=== PATIENT | female | born 2000 | race Two or more races ===

== ENCOUNTER → 2024-03-15 | Outpatient (CLI) | payer MEDICAID, SELFPAY ==
--- NOTE | 2024-03-15 09:57 | XR_ITS ---
Examination: Hand, right 3 views Technique: Hand AP, oblique, lateral 3 views Date and time of exam: March 15, 2024 1005 hours INDICATIONS: Right third digit pain and paresthesias 4 months FINDINGS: Cystic lesion, loculated involving the distal aspect distal phalanx third digit, 6 x 7 mm with pathologic fracture of the cortex No opaque foreign body No alicia cortical bone destruction IMPRESSION: Pathologic fracture distal aspect distal phalanx third digit, 6 x 7 mm cystic lesion in the cortex, differential would include benign bone cyst, enchondroma, less likely malignant etiologies Recommend MRI third digit follow-up pre and post contrast for best diagnostic assessment
--- NOTE | 2024-03-15 09:57 | XR_ITS ---
Examination: Wrist, right 3 views Technique: Wrist AP, oblique, lateral 3 views Date and time of exam: March 15, 2024 1010 hours INDICATIONS: Wrist pain beginning 4 months ago. FINDINGS: No fracture or dislocation No avascular necrosis IMPRESSION: No fracture or dislocation
== END | disposition home or self-care (01) ==
LOC: CDIM 09:39
PROVIDERS: PCP Student in an Organized Health Care Education/Training Program; Referring Provider Nurse Practitioner Gerontology; Visit Provider Nurse Practitioner Gerontology
DX: M84.444A Pathological fracture, right finger(s), initial encounter for fracture (principal); M25.531 Pain in right wrist
CPT/HCPCS: 73110; 73130

== ENCOUNTER 2024-12-20 17:05 | Emergency (ER) | payer MEDICAID, SELFPAY ==
[2024-12-20 17:17] VITALS: BP 121/74; PULSE 82; RESP 20; TEMP 37; O2SAT 98
--- NOTE | 2024-12-20 17:40 | PD.EDHA ---
ED Headache RME/HPI General Chief Complaint: Headache Stated Complaint: N/V, HEADACHE, DIZZY, SHAKY X 3 DAYS Time Seen by Provider: 12/20/24 17:17 Arrival date/time: 12/20/24 17:05 24-year-old female who reports with complaints of headaches dizziness nausea vomiting and tremors that began approximately 3 days ago. Patient notes that she is also started her menses 3 days ago although this is not typical symptoms of her menses. She denies fever chills cough congestion abdominal pain dysuria urinary urgency or frequency back pain or bodyaches. Patient states that she has been taken [id number] medications with no improvement of symptoms Limitations: no limitations Related Data Home Medications ?Medication ?Instructions ?Recorded ?Confirmed PNV CMB#95/FERROUS FUMARATE/FA 1 tab PO QDAY #0 tabs 10/23/15 ( MULTIVITAMINS TABLET) Previous Rx's ?Medication ?Instructions ?Recorded Hydrocodone/Acetaminophen * (NORCO 1 tab PO Q4H PRN PAIN 10 days #0 03/27/17 5/325 *) tabs pantoprazole 40 mg tablet,delayed 40 mg PO QDAY #14 tabs 12/17/22 release (Protonix) Allergies Allergy/AdvReac Type Severity Reaction Status Date / Time No Known Allergies Allergy Verified 12/20/24 17:08 Review of Systems Constitutional Constitutional: Denies chills, Denies fever(s) and Reports headache(s) ENT Ears, Nose, Mouth, and Throat: Reports headache(s), Denies throat swelling, Denies tongue swelling and Denies vertigo Cardiovascular Cardiovascular: Denies chest pain and Denies dyspnea Respiratory Respiratory: Denies cough and Denies dyspnea Gastrointestinal Gastrointestinal: Reports nausea and Denies vomiting Genitourinary Genitourinary: Denies abnormal menses and Denies dysuria Musculoskeletal Musculoskeletal: Denies back pain and Denies myalgias Integumentary/Breasts Skin/Breast: Denies rash and Denies skin pain Neurologic Neurologic: Denies convulsions, Reports headache(s) and Denies vertigo Psychiatric Psychiatric: Denies anxiety, Denies change in appetite and Denies depression Hematologic/Lymphatic Hematologic/Lymphatic: Denies easy bleeding and Denies easy bruising Allergic/Immunologic Allergic/Immunologic: Denies throat swelling and Denies tongue swelling ED Exam General Limitations: Present no limitations General appearance: Present alert and in no apparent distress Head Head exam: Present atraumatic Eye Eye exam: Present normal appearance, PERRL and EOMI ENT ENT exam: Present normal exam, normal oropharynx and mucous membranes moist Neck Neck exam: Present normal inspection, full ROM and trachea midline Chest Chest inspection: Present normal inspection and symmetric chest wall rise Respiratory Respiratory exam: Present normal lung sounds bilaterally Cardiovascular Cardiovascular exam: Present regular rate, normal rhythm and normal heart sounds Abdominal Exam Abdominal exam: Present soft and normal bowel sounds Extremities Exam Extremities exam: Present normal inspection and full ROM Back Exam Back exam: Present normal inspection and full ROM Neurological Exam Neurological exam: Present alert, oriented X3 and CN II-XII intact Psychiatric Psychiatric exam: Present normal affect and normal mood Skin Skin exam: Present warm, dry, intact and normal color Course Course Course Narrative: 24-year-old female reports with complaints of headaches dizziness and shaking x 3 days after starting her menses. Patient's thyroid panel is normal hCG is negative urinalysis is negative for evidence of infection CBC and BMP are also unremarkable. Differential diagnosis includes viral syndrome versus menses versus PMS. Patient is stable nontoxic-appearing with stable vital signs will be sent home advised to follow-up with primary care provider and/or DOCUMENT CONTROL SUPERVISOR Quality Measures none Orders Category Date Time Status BMP [Basic Metabolic Panel] Stat Lab 12/20/24 18:06 Completed CBC Stat Lab 12/20/24 18:06 Completed Free T3 Stat Lab 12/20/24 18:06 Completed HCG,Qualitative Serum Stat Lab 12/20/24 18:06 Completed TSH [Thyroid Stimulating Hormone] Stat Lab 12/20/24 18:06 Completed UA, C/S IF [Urinalysis, C/S if Indicated] Stat Lab 12/20/24 18:20 Results Vital Signs Vital signs: Vital Signs Temperature 98.6 F 12/20/24 17:17 Pulse Rate 82 12/20/24 17:17 Respiratory Rate 20 12/20/24 17:17 Blood Pressure 121/74 12/20/24 17:17 Pulse Oximetry (%) 98 12/20/24 17:17 Oxygen Delivery Method Room Air 12/20/24 17:17 Headache Patient data External records reviewed:: None Clinical information provided by:: patient Social determinants that could affect healthcare access:: none Patient has the following chronic illnesses:: none How is presenting disease/condition affected by chronic disease/condition?: no chronic disease Evaluation data The following diagnostics were reviewed and interpreted by me:: lab results Lab and/or radiology exams considered but not ordered:: none Interpretation Summary: Normal blood labs Medications / Prescriptions Medications or Prescriptions considered but not ordered:: None Medication administrations:: None Consultations Consultation(s) initiated? (list below): No Diagnosis Differential diagnosis headache: migraine, headache and other (PMS, menses symptoms) Most likely diagnosis given after review of the tests above:: Signs and symptoms of menses Admission Indicated Admission indicated?: not indicated Admission Request Was there a request for admission?: No Disposition Plan Disposition Plan: Discharge Discharge Attestation Discharge Attestation: The patient and all family members were given an opportunity to ask questions and understood the discharge instructions. Discharge instructions specifically effects, indications for sooner follow up or return to the emergency department, and the expected course of current diagnosis. Patient condition: Stable Discharge Plan Plan Patient Disposition: HOME (Self Care) Prescriptions/Referrals Prescriptions/Med Rec: No Action PNV CMB#95/FERROUS FUMARATE/FA ( MULTIVITAMINS TABLET) 1 EACH tablet 1 tab PO QDAY Qty: 0 Hydrocodone/Acetaminophen * (NORCO 5/325 *) 1 TAB tablet 1 tab PO Q4H PRN (Reason: PAIN) 10 Days Qty: 0 0RF pantoprazole [Protonix] 40 mg tablet,delayed release (DR/EC) 40 mg PO QDAY Qty: 14 0RF Referrals: Carlitos Burr MD [Primary Care Provider, Family Practice] - In 1 week Problem List Clinical Impression: Menstrual symptom or sign Patient/Caregiver Discharge Instructions Discharge Activity: activity as tolerated Additional Instructions: Your lab tests are all normal your symptoms are most likely caused by your menstrual cycle use medication such as Tylenol or ibuprofen for pain and headache hydrate well follow-up with your primary care provider or your DOCUMENT CONTROL SUPERVISOR if no improvement in 3 days Print Language: Nauruan Stand Alone Forms: Karina Award Info., Patient Portal Info Letter
[2024-12-20 18:18] LABS: Basophils # (Auto) 0.0 Thou/mm3 (0.0-0.2); Basophils % (Auto) 0 % (0-2.5); Eosinophils # (Auto) 0.0 Thou/mm3 (0.0-0.5); Eosinophils % (Auto) 1 % (0-10); Hematocrit 33.6 % (36.0-46.0); Hemoglobin 10.9 g/dL (12.0-16.0); Immature Granulocytes Auto 0.01 Thou/mm3 (0.00-0.00); Lymphocytes # (Auto) 1.9 Thou/mm3 (1.0-4.8); Lymphocytes % (Auto) 37 % (10-50); Mean Corpuscular HGB Conc 32.4 g/dl (31.0-37.0); Mean Corpuscular Hemoglobin 29.2 pg (25.0-35.0); Mean Corpuscular Volume 90 fL (80-100); Monocytes # (Auto) 0.4 Thou/mm3 (0.0-0.8); Monocytes % (Auto) 7 % (0-12); Neutrophils # (Auto) 2.8 Thou/mm3 (1.8-7.7); Neutrophils % (Auto) 55 % (37-80); Nucleated Red Blood Cell # 0.00 Thou/mm3 (0.00-0.00); Nucleated Red Blood Cell % 0 /100 WBC (0); Platelet Count 203 Thou/mm3 (140-440); RDW Standard Deviation 47.6 fL (36.4-46.3); Red Blood Count 3.73 Miln/mm3 (4.00-5.20); White Blood Count 5.1 Thou/mm3 (3.6-11.0)
[2024-12-20 18:27] LABS: Collection Type, Urine Clean Catch
[2024-12-20 18:31] LABS: HCG,Qualitative Serum Negative
[2024-12-20 18:46] LABS: RBC,Urine 3 /hpf (0-3); Squamous Epithelial Cell,Urine 5 /hpf (0-5); WBC,Urine < 1 /hpf (0-5)
[2024-12-20 19:01] LABS: Anion Gap 7 (7-16); BUN/Creatinine Ratio 16 Ratio (12-20); Blood Urea Nitrogen 11 mg/dL (9-23); Calcium 9.2 mg/dL (8.3-10.6); Carbon Dioxide 25.9 mMol/L (20.0-31.0); Chloride 108 mMol/L (98-107); Creatinine (Component) 0.7 mg/dL (0.6-1.3); Free T3 3.6 pg/mL (2.3-4.2); Glucose 123 mg/dL (74-106); Osmolality,Calculated 281 (275-295); Potassium 4.1 mMol/L (3.4-5.1); Sodium 141 mMol/L (136-145); Thyroid Stimulating Hormone 1.28 uIU/mL (0.55-4.78); eGFR > 60 See Note
[2024-12-20 19:02] LABS: Bilirubin,Urine Negative (Negative); Blood,Urine Negative (Negative); Clarity,Urine Clear (Clear/Hazy); Color,Urine Lt-Yellow (Lt Yel-Yel); Culture Indicated,Urine Not Indicated; Glucose, Urine Negative (Negative); Ketones,Urine Negative (Negative); Leukocyte Esterase,Urine Negative (Negative); Nitrite,Urine Negative (Negative); PH,Urine 6.0 (5.0-7.0); Protein,Urine Negative (Neg - Trace); Specific Gravity,Urine 1.030 (1.001-1.035); Urobilinogen,Urine Negative mg/dL (0.0-1.0)
== END 2024-12-20 20:17 | disposition home or self-care (01) ==
PROVIDERS: Physician Assistant; Emergency Provider Emergency Medicine; PCP Family Medicine
DX: R51.9 Headache, unspecified (principal)
CPT/HCPCS: 36415; 80048; 81001; 84443; 84481; 84703; 85025; 99283